=== PATIENT | female | born 1945 | race Caucasian/White ===

== ENCOUNTER → 2016-06-17 | Outpatient (CLI) | payer MEDICARE, OTHER ==
[2016-06-17 14:33] LABS: ANION GAP 8 (5-19); BLOOD UREA NITROGEN 24 mg/dL (7-20); CALCIUM 9.5 mg/dL (8.4-10.2); CARBON DIOXIDE 31 mmol/L (22-30); CHLORIDE 100 mmol/L (98-107); CREATININE RESULT 0.82 mg/dL (0.52-1.25); GLUCOSE 139 mg/dL (75-110); POTASSIUM 4.8 mmol/L (3.6-5.0); SODIUM 139.3 mmol/L (137-145)
== END ==
LOC: OD 12:55
PROVIDERS: ATTEND Family Medicine
DX: E11.59 Type 2 diabetes mellitus with other circulatory complications (principal)
CPT/HCPCS: 36415; 80048; 83036

== ENCOUNTER → 2016-09-23 | Outpatient (CLI) | payer MEDICARE, OTHER | LOC: RAD 10:52 | DX: Z12.31 Encounter for screening mammogram for malignant neoplasm of breast (principal) | CPT/HCPCS: 77067; G0202 ==

== ENCOUNTER → 2017-01-20 | Outpatient (CLI) | payer MEDICARE, OTHER ==
[2017-01-20 16:16] LABS: ABSOLUTE BASOPHILS # (AUTO) 0.1 10^3/uL (0.0-0.2); ABSOLUTE EOSINOPHILS # (AUTO) 0.3 10^3/uL (0.0-0.6); ABSOLUTE LYMPHOCYTES (AUTO) 2.7 10^3/uL (0.5-4.7); ABSOLUTE MONOCYTES (AUTO) 0.9 10^3/uL (0.1-1.4); ABSOLUTE NEUT (AUTO) 7.1 10^3/uL (1.7-8.2); BASOPHILS % (AUTO) 0.6 % (0-2); EOSINOPHILS % (AUTO) 2.8 % (0-6); HEMATOCRIT 42.1 % (36.0-47.0); HEMOGLOBIN 14.7 g/dL (12.0-15.5); LYMPHOCYTES % (AUTO) 24.2 % (13-45); MEAN CORPUSCULAR HEMOGLOBIN 32.1 pg (27.0-33.4); MEAN CORPUSCULAR HGB CONC 34.9 g/dL (32.0-36.0); MEAN CORPUSCULAR VOLUME 92 fl (80-97); MONOCYTES % (AUTO) 8.1 % (3-13); RED BLOOD COUNT 4.58 10^6/uL (3.72-5.28); RED CELL DISTRIBUTION WIDTH 12.5 % (11.5-14.0); SEGMENTED NEUTROPHILS % (AUTO) 64.3 % (42-78); WHITE BLOOD COUNT 11.1 10^3/uL (4.0-10.5)
[2017-01-20 16:41] LABS: ALANINE AMINOTRANSFERASE 19 U/L (9-52); ALBUMIN 4.1 g/dL (3.5-5.0); ALKALINE PHOSPHATASE 79 U/L (38-126); ANION GAP 9 (5-19); ASPARTATE AMINO TRANSFERASE 17 U/L (14-36); BILIRUBIN,DIRECT 0.4 mg/dL (0.0-0.4); BILIRUBIN,TOTAL 0.5 mg/dL (0.2-1.3); BLOOD UREA NITROGEN 16 mg/dL (7-20); CALCIUM 9.9 mg/dL (8.4-10.2); CARBON DIOXIDE 31 mmol/L (22-30); CHLORIDE 101 mmol/L (98-107); CHOLESTEROL 253.03 mg/dL (0-200); CREATININE RESULT 0.77 mg/dL (0.52-1.25); Direct HDL 34 mg/dL (>40); GLUCOSE 120 mg/dL (75-110); POTASSIUM 4.5 mmol/L (3.6-5.0)
[2017-01-22 15:37] LABS: CREATININE URINE 28.2 mg/dL (Not Estab.); MICROALBUMIN URINE 7.7 ug/mL (Not Estab.)
== END ==
LOC: OD 14:59
PROVIDERS: ATTEND Family Medicine
DX: E78.5 Hyperlipidemia, unspecified (principal); E11.59 Type 2 diabetes mellitus with other circulatory complications; Z79.899 Other long term (current) drug therapy
CPT/HCPCS: 36415; 80053; 82043; 82465; 82570; 83036; 83718; 84443; 85025

== ENCOUNTER → 2017-07-11 | Outpatient (CLI) | payer MEDICARE, OTHER ==
[2017-07-11 12:24] LABS: ABSOLUTE BASOPHILS # (AUTO) 0.1 10^3/uL (0.0-0.2); ABSOLUTE EOSINOPHILS # (AUTO) 0.3 10^3/uL (0.0-0.6); ABSOLUTE LYMPHOCYTES (AUTO) 2.8 10^3/uL (0.5-4.7); ABSOLUTE NEUT (AUTO) 7.7 10^3/uL (1.7-8.2); BASOPHILS % (AUTO) 0.8 % (0-2); EOSINOPHILS % (AUTO) 2.4 % (0-6); HEMATOCRIT 42.9 % (36.0-47.0); HEMOGLOBIN 14.7 g/dL (12.0-15.5); LYMPHOCYTES % (AUTO) 23.5 % (13-45); MEAN CORPUSCULAR HEMOGLOBIN 31.5 pg (27.0-33.4); MEAN CORPUSCULAR HGB CONC 34.2 g/dL (32.0-36.0); MEAN CORPUSCULAR VOLUME 92 fl (80-97); MONOCYTES % (AUTO) 8.5 % (3-13); PLATELET COUNT 236 10^3/uL (150-450); RED BLOOD COUNT 4.65 10^6/uL (3.72-5.28); RED CELL DISTRIBUTION WIDTH 12.7 % (11.5-14.0); SEGMENTED NEUTROPHILS % (AUTO) 64.8 % (42-78); TOTAL CELLS COUNTED % (AUTO) 100 %; WHITE BLOOD COUNT 11.9 10^3/uL (4.0-10.5)
[2017-07-11 12:54] LABS: ALANINE AMINOTRANSFERASE 25 U/L (9-52); ALBUMIN 4.2 g/dL (3.5-5.0); ALKALINE PHOSPHATASE 70 U/L (38-126); ANION GAP 8 (5-19); ASPARTATE AMINO TRANSFERASE 24 U/L (14-36); BILIRUBIN,DIRECT 0.6 mg/dL (0.0-0.4); BILIRUBIN,TOTAL 0.7 mg/dL (0.2-1.3); BLOOD UREA NITROGEN 20 mg/dL (7-20); CALCIUM 9.7 mg/dL (8.4-10.2); CARBON DIOXIDE 30 mmol/L (22-30); CHLORIDE 102 mmol/L (98-107); CHOLESTEROL 265.48 mg/dL (0-200); GLUCOSE 153 mg/dL (75-110); POTASSIUM 4.8 mmol/L (3.6-5.0); SODIUM 139.5 mmol/L (137-145); TOTAL PROTEIN 7.4 g/dL (6.3-8.2)
--- NOTE | 2017-07-11 14:03 | RADIOLOGY REPORT (SQ) ---
EXAM DESCRIPTION: CHEST PA/LATERAL COMPLETED DATE/TIME: 07/11/2017 11:52 am REASON FOR STUDY: WHEEZING COMPARISON: None. EXAM PARAMETERS: NUMBER OF VIEWS: two views TECHNIQUE: Digital Frontal and Lateral radiographic views of the chest acquired. RADIATION DOSE: NA LIMITATIONS: none FINDINGS: LUNGS AND PLEURA: No opacities, masses or pneumothorax. No pleural effusion. MEDIASTINUM AND HILAR STRUCTURES: No masses or contour abnormalities. HEART AND VASCULAR STRUCTURES: Heart normal size. No evidence for failure. BONES: No acute findings. Osteopenia. Minimal thoracic spondylosis. HARDWARE: Status post CABG. OTHER: No other significant finding. IMPRESSION: No evidence of acute cardiopulmonary disease. TECHNICAL DOCUMENTATION: JOB ID: [id number] [employer]- All Rights Reserved Reading location - IP/workstation name: [email or web address]
[2017-07-12 10:38] LABS: CREATININE URINE 64.8 mg/dL (Not Estab.); MICROALBUMIN URINE 21.4 ug/mL (Not Estab.)
== END ==
LOC: OD 11:14
PROVIDERS: ATTEND Family Medicine
DX: E78.5 Hyperlipidemia, unspecified (principal); Z79.899 Other long term (current) drug therapy; R06.2 Wheezing; E11.59 Type 2 diabetes mellitus with other circulatory complications
CPT/HCPCS: 36415; 71046; 80053; 82043; 82465; 82570; 83036; 83718; 85025

== ENCOUNTER → 2018-02-08 | Outpatient (CLI) | payer MEDICARE, OTHER ==
[2018-02-08 12:43] LABS: ABSOLUTE BASOPHILS # (AUTO) 0.1 10^3/uL (0.0-0.2); ABSOLUTE EOSINOPHILS # (AUTO) 0.3 10^3/uL (0.0-0.6); ABSOLUTE LYMPHOCYTES (AUTO) 2.2 10^3/uL (0.5-4.7); ABSOLUTE MONOCYTES (AUTO) 0.7 10^3/uL (0.1-1.4); BASOPHILS % (AUTO) 0.6 % (0-2); EOSINOPHILS % (AUTO) 2.5 % (0-6); HEMATOCRIT 40.1 % (36.0-47.0); HEMOGLOBIN 14.1 g/dL (12.0-15.5); LYMPHOCYTES % (AUTO) 21.4 % (13-45); MEAN CORPUSCULAR HEMOGLOBIN 32.1 pg (27.0-33.4); MEAN CORPUSCULAR HGB CONC 35.2 g/dL (32.0-36.0); MEAN CORPUSCULAR VOLUME 91 fl (80-97); MONOCYTES % (AUTO) 6.8 % (3-13); PLATELET COUNT 233 10^3/uL (150-450); RED BLOOD COUNT 4.39 10^6/uL (3.72-5.28); RED CELL DISTRIBUTION WIDTH 12.7 % (11.5-14.0); SEGMENTED NEUTROPHILS % (AUTO) 68.7 % (42-78); TOTAL CELLS COUNTED % (AUTO) 100 %; WHITE BLOOD COUNT 10.2 10^3/uL (4.0-10.5)
[2018-02-08 12:56] LABS: ALANINE AMINOTRANSFERASE 22 U/L (9-52); ALBUMIN 3.6 g/dL (3.5-5.0); ALKALINE PHOSPHATASE 70 U/L (38-126); ANION GAP 6 (5-19); ASPARTATE AMINO TRANSFERASE 15 U/L (14-36); BILIRUBIN,DIRECT 0.4 mg/dL (0.0-0.4); BILIRUBIN,TOTAL 0.5 mg/dL (0.2-1.3); BLOOD UREA NITROGEN 19 mg/dL (7-20); CALCIUM 8.9 mg/dL (8.4-10.2); CARBON DIOXIDE 31 mmol/L (22-30); CHLORIDE 101 mmol/L (98-107); CHOLESTEROL 236.84 mg/dL (0-200); GLUCOSE 229 mg/dL (75-110); POTASSIUM 4.8 mmol/L (3.6-5.0); SODIUM 137.7 mmol/L (137-145); TOTAL PROTEIN 6.5 g/dL (6.3-8.2)
== END ==
LOC: OD 11:37
PROVIDERS: ATTEND Family Medicine
DX: E78.5 Hyperlipidemia, unspecified (principal); E11.59 Type 2 diabetes mellitus with other circulatory complications; Z79.899 Other long term (current) drug therapy
CPT/HCPCS: 36415; 80053; 82465; 83036; 83718; 85025

== ENCOUNTER → 2018-05-30 | Outpatient (CLI) | payer MEDICARE, OTHER ==
[2018-05-30 11:56] LABS: ALANINE AMINOTRANSFERASE 33 U/L (9-52); ALBUMIN 4.2 g/dL (3.5-5.0); ALKALINE PHOSPHATASE 85 U/L (38-126); ANION GAP 7 (5-19); ASPARTATE AMINO TRANSFERASE 22 U/L (14-36); BILIRUBIN,DIRECT 0.3 mg/dL (0.0-0.4); BILIRUBIN,TOTAL 0.5 mg/dL (0.2-1.3); BLOOD UREA NITROGEN 19 mg/dL (7-20); CALCIUM 9.5 mg/dL (8.4-10.2); CARBON DIOXIDE 30 mmol/L (22-30); CHLORIDE 101 mmol/L (98-107); GLUCOSE 155 mg/dL (75-110); POTASSIUM 4.3 mmol/L (3.6-5.0); SODIUM 137.9 mmol/L (137-145); TOTAL PROTEIN 7.2 g/dL (6.3-8.2)
== END ==
LOC: OD 10:55
PROVIDERS: ATTEND Internal Medicine
DX: I10 Essential (primary) hypertension (principal); E78.49 Other hyperlipidemia; Z79.899 Other long term (current) drug therapy
CPT/HCPCS: 36415; 80053

== ENCOUNTER → 2018-06-21 | Outpatient (CLI) | payer MEDICARE, OTHER ==
[2018-06-21 14:25] LABS: ABSOLUTE BASOPHILS # (AUTO) 0.1 10^3/uL (0.0-0.2); ABSOLUTE EOSINOPHILS # (AUTO) 0.3 10^3/uL (0.0-0.6); ABSOLUTE LYMPHOCYTES (AUTO) 2.4 10^3/uL (0.5-4.7); ABSOLUTE MONOCYTES (AUTO) 0.8 10^3/uL (0.1-1.4); ABSOLUTE NEUT (AUTO) 7.8 10^3/uL (1.7-8.2); BASOPHILS % (AUTO) 0.8 % (0-2); EOSINOPHILS % (AUTO) 2.3 % (0-6); HEMATOCRIT 40.2 % (36.0-47.0); HEMOGLOBIN 13.9 g/dL (12.0-15.5); LYMPHOCYTES % (AUTO) 20.9 % (13-45); MEAN CORPUSCULAR HEMOGLOBIN 31.8 pg (27.0-33.4); MEAN CORPUSCULAR HGB CONC 34.7 g/dL (32.0-36.0); MEAN CORPUSCULAR VOLUME 92 fl (80-97); MONOCYTES % (AUTO) 7.1 % (3-13); PLATELET COUNT 242 10^3/uL (150-450); RED BLOOD COUNT 4.39 10^6/uL (3.72-5.28); RED CELL DISTRIBUTION WIDTH 12.2 % (11.5-14.0); SEGMENTED NEUTROPHILS % (AUTO) 68.9 % (42-78); TOTAL CELLS COUNTED % (AUTO) 100 %; WHITE BLOOD COUNT 11.4 10^3/uL (4.0-10.5)
[2018-06-21 14:52] LABS: ALANINE AMINOTRANSFERASE 25 U/L (9-52); ALKALINE PHOSPHATASE 86 U/L (38-126); ANION GAP 8 (5-19); ASPARTATE AMINO TRANSFERASE 15 U/L (14-36); BILIRUBIN,DIRECT 0.2 mg/dL (0.0-0.4); BILIRUBIN,TOTAL 0.4 mg/dL (0.2-1.3); BLOOD UREA NITROGEN 24 mg/dL (7-20); CALCIUM 9.4 mg/dL (8.4-10.2); CARBON DIOXIDE 31 mmol/L (22-30); CHLORIDE 99 mmol/L (98-107); CHOLESTEROL 233.68 mg/dL (0-200); GLUCOSE 245 mg/dL (75-110); POTASSIUM 4.3 mmol/L (3.6-5.0); SODIUM 138.4 mmol/L (137-145); TOTAL PROTEIN 6.7 g/dL (6.3-8.2)
== END ==
LOC: OD 12:38
PROVIDERS: ATTEND Family Medicine
DX: E11.59 Type 2 diabetes mellitus with other circulatory complications (principal); Z79.899 Other long term (current) drug therapy; E78.5 Hyperlipidemia, unspecified
CPT/HCPCS: 36415; 80053; 82465; 83036; 83718; 85025

== ENCOUNTER → 2018-09-27 | Outpatient (CLI) | payer MEDICARE, OTHER | LOC: OD 11:54 | PROVIDERS: ATTEND Family Medicine | DX: E11.59 Type 2 diabetes mellitus with other circulatory complications (principal) | CPT/HCPCS: 36415; 83036 ==

== ENCOUNTER 2019-02-17 21:37 | Emergency (ER) | payer MEDICARE, OTHER ==
[2019-02-17] MEDS ORDERED: PROPOFOL 1,000 MG/100 ML INFUS..BTL IV PRN (21:58)
[2019-02-17 22:07] LABS: ABSOLUTE BASOPHILS # (AUTO) 0.1 10^3/uL (0.0-0.2); ABSOLUTE EOSINOPHILS # (AUTO) 0.3 10^3/uL (0.0-0.6); ABSOLUTE LYMPHOCYTES (AUTO) 5.8 10^3/uL (0.5-4.7); ABSOLUTE MONOCYTES (AUTO) 1.9 10^3/uL (0.1-1.4); ABSOLUTE NEUT (AUTO) 10.9 10^3/uL (1.7-8.2); BASOPHILS % (AUTO) 0.6 % (0-2); EOSINOPHILS % (AUTO) 1.5 % (0-6); HEMATOCRIT 42.2 % (36.0-47.0); HEMOGLOBIN 13.9 g/dL (12.0-15.5); LYMPHOCYTES % (AUTO) 30.6 % (13-45); MEAN CORPUSCULAR HEMOGLOBIN 31.1 pg (27.0-33.4); MEAN CORPUSCULAR HGB CONC 33.1 g/dL (32.0-36.0); MEAN CORPUSCULAR VOLUME 94 fl (80-97); MONOCYTES % (AUTO) 10.2 % (3-13); PLATELET COUNT 267 10^3/uL (150-450); RED BLOOD COUNT 4.48 10^6/uL (3.72-5.28); RED CELL DISTRIBUTION WIDTH 12.6 % (11.5-14.0); SEGMENTED NEUTROPHILS % (AUTO) 57.1 % (42-78); TOTAL CELLS COUNTED % (AUTO) 100 %; WHITE BLOOD COUNT 19.1 10^3/uL (4.0-10.5)
[2019-02-17 22:13] LABS: INTERNATIONAL RATION (INR) 1.15; PARTIAL THROMBOPLASTIN TIME 28.6 SEC (23.5-35.8); PROTHROMBIN TIME 14.8 SEC (11.4-15.4)
[2019-02-17 22:17] LABS: ALBUMIN 3.9 g/dL (3.5-5.0); ALKALINE PHOSPHATASE 91 U/L (38-126); ANION GAP 17 (5-19); ASPARTATE AMINO TRANSFERASE 29 U/L (14-36); BILIRUBIN,DIRECT 0.3 mg/dL (0.0-0.4); BILIRUBIN,TOTAL 0.7 mg/dL (0.2-1.3); BLOOD UREA NITROGEN 16 mg/dL (7-20); CARBON DIOXIDE 19 mmol/L (22-30); CHLORIDE 98 mmol/L (98-107); CREATINE KINASE 188 U/L (30-135); GLUCOSE 339 mg/dL (75-110)
--- NOTE | 2019-02-17 22:20 | RADIOLOGY REPORT (SQ) ---
EXAM DESCRIPTION: XR CHEST 1 VIEW COMPLETED DATE/TME: 02/17/2019 21:55 CLINICAL HISTORY: 73 years, Female, AMS COMPARISON: Prior study from 07/11/2017 NUMBER OF VIEWS: Two TECHNIQUE: Two frontal radiographs of the chest were obtained LIMITATIONS: None. FINDINGS: Status post median sternotomy. Enteric drainage tube tip projects about the gastric body. Endotracheal tube tip is located within the trachea, approximately 5 cm above the talita. Cardiac and mediastinal contours are stable. Lungs are clear. No pleural effusion or pneumothorax. IMPRESSION: Clear lungs. Support devices, as above. copyright 2010 [employer]- All Rights Reserved
[2019-02-17 22:25] LABS: CREATINE KINASE MB 3.71 ng/mL (<4.55)
[2019-02-17 22:32] LABS: TROPONIN I 0.183 ng/mL
[2019-02-17] MEDS ORDERED: MIDAZOLAM 2 MG/2 ML INJ IV ONE (22:32)
[2019-02-17] MEDS ORDERED: SUCCINYLCHOLINE CHLORIDE INJ 200 MG/10 ML VIAL IV ONE (22:33)
--- NOTE | 2019-02-17 22:33 | RADIOLOGY REPORT (SQ) ---
EXAM DESCRIPTION: CT HEAD WITHOUT IV CONTRAST COMPLETED DATE/TME: 02/17/2019 21:55 CLINICAL HISTORY: 73 years, Female, AMS COMPARISON: None. TECHNIQUE: Noncontrast CT of head was performed. Coronal and sagittal reformations were created. Images stored on PACS. All CT scanners at this facility use dose modulation, iterative reconstruction, and/or weight based dosing when appropriate to reduce radiation dose to as low as reasonably achievable (ALARA). [facility]: Dose Right [facility]: CareDose [facility]: Dose Right [facility]: Teradose 4D [facility]: Smart [employer] LIMITATIONS: None. FINDINGS: Evaluation of the brain parenchyma reveals an area of hypodensity located about the right frontal lobe in association with subarachnoid hemorrhage about the right frontal and parietal lobes towards the vertex. Additional subarachnoid hemorrhage is noted along the midline falx. No significant midline shift is noted about the right lateral ventricle does appear somewhat compressed. Overall, the intraparenchymal hematoma is difficult to measure given its unusual configuration though it is approximately 2.2 x 1.7 cm in size on image 20 of series 400. Superimposed mild periventricular and patchy subcortical white matter low attenuation is noted. In addition, there is a zone of encephalomalacia about the left temporal and occipital lobes, indicating a remote left LOW VOLTAGE TECHNICIAN distribution infarct. Globes and orbits show no acute abnormality. Paranasal sinuses and mastoid air cells are clear. Calcifications are noted about the parasellar carotid arteries. No depressed skull fractures. IMPRESSION: Acute intraparenchymal hematoma located within the right frontal lobe in association with subarachnoid hemorrhage about the right frontoparietal region as well as along the anterior falx. No midline shift or there is mild mass effect upon the right lateral ventricle. Mild chronic microvascular ischemic change. Remote left LOW VOLTAGE TECHNICIAN distribution infarct. TECHNICAL DOCUMENTATION: Quality ID # [id number]: Final reports with documentation of one or more dose reduction techniques (e.g., Automated exposure control, adjustment of the mA and/or kV according to patient size, use of iterative reconstruction technique) copyright 2011 [employer]- All Rights Reserved
[2019-02-17] MEDS ORDERED: NORMAL SALINE 250 ML IV PRN (22:37)
[2019-02-17] MEDS ORDERED: LEVETIRACETAM 1000 MG/NACL-ISO 1,000 MG/100 ML RTUPB IV ONE (23:21)
[2019-02-17 23:43] VITALS: BP 167/74
--- NOTE | 2019-02-17 23:55 | ER Document Report ---
ED General - General Chief Complaint: Unresponsive Stated Complaint: UNRESPONSIVE Time Seen by Provider: 02/17/19 22:07 Primary Care Provider: AMADA MIRANDA MD [Primary Care Provider] - Follow up as needed Mode of Arrival: Medic TRAVEL OUTSIDE OF THE [place] IN LAST 30 DAYS: No - HPI Notes: Patient arrived into trauma room #2 by local rescue. This MD was called into the room upon the patient's arrival. This MD found the patient to be intubated with a blind airway device. History is limited given the patient is unresponsive and intubated. History was related to this MD by the medics initially and later by the patient's who arrived after stabilization of the patient. Patient apparently had a right carotid endarterectomy performed at [facility] on , February 15, 2019. According to the , patient had been doing fairly well until today when she started complaining of a severe headache around 11 AM. Patient's denies patient exhibiting focal neurologic symptoms such as dysarthria or dystaxia or complaints of visual changes from the initial time of complaint of onset of headache until he found the patient just prior to calling 911 on the floor in the kitchen. states that the patient was starting to eat her dinner at the kitchen counter, the had told her to sit down to eat her dinner and stepped out of the room, and returned immediately to the room when he heard the dinner tray hit the kitchen floor. 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 In the course of transferring the patient to the hospital, the patient reportedly had seizure activity. Concerned for the patient's airway, semiconductor dies loader team inserted a intraosseous needle into the patient's left lower leg. Patient was then given 20 mg of etomidate followed by 100 mg of succinylcholine. A blind airway device was inserted into the patient's oropharynx. Patient was placed on oxygen and rapidly transported to this emergency department. - Related Data Allergies/Adverse Reactions: Penicillins Allergy (Verified 02/17/19 22:07) Past Medical History - General Information source: Emergency Med Personnel, Outside Facility Records Cannot obtain history due to: Altered mental status - Social History Smoking Status: Unknown if Ever Smoked Lives with: Spouse/Significant other Family History: Other - Unknown at time of encounter - Medical History Notes: Recent carotid endarterectomy, there is significant past medical history and 9 at time of patient's arrival. Review of Systems - Review of Systems -: Yes ROS unobtainable due to patient's medical condition Physical Exam - Vital signs Vitals: Resp Pulse Ox 17 100 02/17/19 21:40 02/17/19 21:40 Interpretation: Hypertensive - General General appearance: Unresponsive In distress: Severe - HEENT Head: Normocephalic, Atraumatic Conjunctiva: Normal Pupils: Pinpoint Mucous membranes: Moist Pharynx: Potential airway comprom., Other - Patient has a blind airway device in her oropharynx. There is vomitus emanating from the patient's oropharynx Neck: Other - There is no tracheal deviation, pulsatile mass or unilateral neck swelling noted on physical exam. Patient's right anterior neck has a postop bandage on it and the area appears hemostatic. - Respiratory Respiratory status: Other - Patient has a blind airway in place. Bilateral breath sounds are noted with with squeezing of bag valve device. Chest status: Nontender. No: Ecchymosis Breath sounds: Other - Breath sounds are present with squeezing of bag valve - Cardiovascular Rhythm: Tachycardia Heart sounds: Normal auscultation Murmur: No Friction rub: No Steff's crunch: No - Abdominal Distension: Distended Bowel sounds: Hypoactive Tenderness: Nontender - Extremities General upper extremity: Normal inspection General lower extremity: Normal inspection - Neurological Neuro grossly intact: No - Patient is intubated Cognition: No: Normal Orientation: No: AAOx4 Speech: No: Normal Cranial nerves: No: Normal - Psychological Associated symptoms: Other - Unable to assess - Skin Skin Moisture: Dry Skin Color: Pale Course - Re-evaluation Re-evalutation: 02/18/19 00:04 See nursing notes for times on resuscitation medications and intubation. - Vital Signs Vital signs: Temp Pulse Resp BP Pulse Ox 16 167/74 H 96 02/17/19 23:26 02/17/19 23:26 02/17/19 23:26 - Laboratory Result Diagrams: 02/17/19 21:42 02/17/19 21:42 Laboratory results interpreted by me: 02/17/19 02/17/19 21:42 21:42 WBC 19.1 H Absolute Neuts (auto) 10.9 H Absolute Lymphs (auto) 5.8 H Absolute Monos (auto) 1.9 H Sodium 133.8 L Carbon Dioxide 19 L Glucose 339 H Creatine Kinase 188 H 02/18/19 00:05 Laboratory results reviewed by this MD. - Diagnostic Test Radiology reviewed: Image reviewed - Chest x-ray was reviewed by this MD after intubation. ET tube appears to have adequate placement. Radiology findings on head CT were discussed with Dr. Dereck Dowell at 2238 hrs. on 02/16/2019. Head CT is significant for right frontotemporal intraparenchymal bleeding and ef facement of the right ventricle., Reports reviewed - EKG Interpretation by Me Rate: Tachycardia Rhythm: Other - Stack Orange/QRS: No: Right axis deviation, Left axis deviation Voltage: No: Increased voltage Heart block present: No: 1st Degree, Mobitz 1, Mobitz 2, CHB (3rd degree block) Additional EKG results interpreted by me: 02/18/19 00:07 No prior EKG was immediately available for comparison. EKG impression: Sinus tachycardia with normal axis, narrow QRS complexes and nonspecific ST segments. - Transfer of Care Notes: 02/18/19 00:08 After stabilization, patient was discussed with Tabby with [facility] transfer line at 2203 hrs on 02/17/2019. Approximately 15 minutes later Case was discussed with CRISTINA Wright attending [facility]. Dr. Craft accepted patient for transfer to his facility. 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 Reason for transfer is that this facility does not have in house neurology or neurosurgery capability. 2250 hrs. on 02/17/2019: This MD completed the EMTALA form for transfer. At 2343 hrs. on the same date, this MD reassessed the patient just prior to transfer. Patient remains sedated blood pressure 134 systolic. Breath sounds bilateral. Dependent settings: SIMV, tidal volume 400, rate 16, 5 with PEEP 10 of pressure support and 70% O2. Demographics and imaging was "power shared" with [facility] at the request of Tabby, the complaint coordinator. Procedures - Intubation Orotracheal Time of Intubation: 21:48 - After suctioning copious amounts of vomitus from the patient's oropharynx, and ensuring that the colonoscope, ET tube, stylette, suction, OPA, other supporting equipment was ready, this MD removed the patient's upper dentures and place them in a container. I then suctioned the patient's oropharynx and inserted a colonoscope into the oropharynx with mild left hand and easily visualized the patient's vocal cords. This procedure was started after the patient received 5 mg of Versed IV followed by 150 mg of succinylcholine IV. ET tube was passed through the cords and situated at the lip at 24 cm. The breath sounds were assessed and found to be slightly decreased on the left. This MD ordered that the balloon be deflated and then this MD adjusted the ET tube to 23 cm at lip with improvement of subsequent breath sounds completed with bag valve. This MD held the ET tube in place until it was secured by the respiratory therapist. Airway evaluation: Other - See comment above Mallampati Classification: Class 3 Medications: Succinylcholine, Versed Intubation method: Orotracheal Blade type: Mack Blade size: 4 Equipment used: Glidescope ETT size: 7.5 ETT secured at: Lips ETT secured at (cm): 23 Breath Sounds after Intubation: Other - See comments section above End tidal CO2 confirmed: Yes Ventilator settings: SIMV Tidal volume: 400 FiO2: 70% Respirations: 16 Pressure support: 10 PEEP: 5 Post Intubation Xray: Yes Intubation Complications: No complications Critical Care Note - Critical Care Note Total time excluding time spent on procedures (mins): 60 Discharge - Discharge Clinical Impression: Intracranial hemorrhage Condition: Critical Disposition: Tertiary-Other Referrals: AMADA MIRANDA MD [Primary Care Provider] - Follow up as needed
--- NOTE | 2019-02-18 08:43 | EKG REPORT ---
SEVERITY:- ABNORMAL ECG - SINUS TACHYCARDIA PROBABLE LEFT ATRIAL ABNORMALITY PROBABLE LVH WITH SECONDARY REPOL ABNRM PROBABLE INFERIOR INFARCT, AGE INDETERMINATE PROLONGED QT INTERVAL : Confirmed by: Soy Mccarthy MD 18-Feb-2019 08:43:07
== END 2019-02-17 23:40 | disposition short-term general hospital (02) ==
LOC: ER 21:37
DX: I62.9 Nontraumatic intracranial hemorrhage, unspecified (principal); R30.0 Dysuria; Z88.0 Allergy status to penicillin; Z98.890 Other specified postprocedural states
CPT/HCPCS: 93005; 99291; 51702; 96374; 86900; 86901; 36415; 82553; 82550; 85025; 85610; 85730; 80053; 84484; 71045; 70450; 94660; 93010; 31500; J2250; J2704; J0330; J1953

== ENCOUNTER → 2019-10-02 | Outpatient (CLI) | payer MEDICARE, OTHER ==
[2019-10-02 12:26] LABS: ANION GAP 6 (5-19); BLOOD UREA NITROGEN 29 mg/dL (7-20); CALCIUM 9.3 mg/dL (8.4-10.2); CARBON DIOXIDE 29 mmol/L (22-30); CHLORIDE 100 mmol/L (98-107); GLUCOSE 174 mg/dL (75-110); POTASSIUM 4.6 mmol/L (3.6-5.0)
== END ==
LOC: OD 11:17
PROVIDERS: ATTEND Family Medicine
DX: E11.65 Type 2 diabetes mellitus with hyperglycemia (principal)
CPT/HCPCS: 36415; 80048; 83036

== ENCOUNTER → 2020-03-04 | Outpatient (CLI) | payer MEDICARE, OTHER ==
[2020-03-04 14:09] LABS: ANION GAP 11 (5-19); BLOOD UREA NITROGEN 26 mg/dL (7-20); CALCIUM 9.7 mg/dL (8.4-10.2); CARBON DIOXIDE 29 mmol/L (22-30); CHLORIDE 98 mmol/L (98-107); GLUCOSE 126 mg/dL (75-110); POTASSIUM 4.4 mmol/L (3.6-5.0)
== END ==
LOC: OD 12:53
PROVIDERS: ATTEND Family Medicine
DX: E11.65 Type 2 diabetes mellitus with hyperglycemia (principal)
CPT/HCPCS: 36415; 80048; 83036